=== PATIENT | male | born 1985 | race Caucasian/White ===

== ENCOUNTER → 2016-07-23 | Outpatient (CLI) | payer OTHER ==
[~2016-07-23] MED LIST: CONRAY-43 43% 50ML VIAL (Q9960) As Ordered ONE
--- NOTE | 2016-07-23 09:57 | REP ---
MR ARTHROGRAM LEFT HIP: TECHNIQUE: Coronal T1, STIR through the pelvis, post arthrogram axial T1 fat sat, T2 fat sat, coronal T1 fat sat, T2 fat sat, sagittal T1 fat sat, axial oblique T1 fat sat left hip. The visualized osseous structures demonstrate normal marrow signal. There is no bone marrow edema or occult fracture. There is no evidence of avascular necrosis. There is a tear of the anterior superior labrum. No paralabral cyst is seen. Surrounding soft tissue structures demonstrate abnormal signal. There is no joint effusion. The visualized intrapelvic structures appear unremarkable. IMPRESSION: There is a tear of the anterior superior labrum of the left hip. Signed by Gonzalez Mcbride MD 07/23/2016 03:19 P
--- NOTE | 2016-07-23 15:26 | REP ---
Left hip arthrogram The procedure was performed under the direction supervision of Dr. Mcbride. The benefits and risks including but not limited to pain, infection, bleeding and anaphylaxis were explained to the patient and informed consent was obtained. The left femoral neck was localized using fluoroscopic guidance. Skin was prepped and draped in a sterile fashion. 1% lidocaine was used as a local anesthetic. Using fluoroscopic guidance a 22 gauge spinal needle was inserted and advanced to the femoral neck. 0.5 ml of Conray 43 was injected to verify placement. 11 ml of a solution containing 20 ml of sterile saline and 0.15 ml of ProHance was injected into the joint. The needle was removed and the patient was taken to MRI for postprocedural imaging. The the patient tolerated the procedure well and there were no immediate complications. 1 second of fluoro time was utilized for this procedure. Reviewed by JUANITA Townsend 07/23/2016 09:04 ASigned by Gonzalez Mcbride MD 07/23/2016 03:17 P
== END | disposition home or self-care (01) ==
LOC: M RADPRO 07:45
PROVIDERS: ATTEND Physician Assistant
DX: M24.852 Other specific joint derangements of left hip, not elsewhere classified (principal)
CPT/HCPCS: 27093; 73723; 77002; A9576; Q9960

== ENCOUNTER → 2016-08-27 | Outpatient (CLI) | payer OTHER ==
[~2016-08-27] MED LIST changes: +LIDOCAINE 1% MDV 20ML VIAL As Ordered ONE; +TRIAMCINOLONE ACETONIDE SUSP 40 MG/ML VIAL (J3301) As Ordered ONE
--- NOTE | 2016-08-27 16:45 | REP ---
LEFT HIP INJECTION: The procedure was performed under the direct supervision of Dr. Umana. The benefits and risks including but not limited to pain, infection, bleeding, and anaphylaxis were explained to the patient and informed consent was obtained. The left femoral neck was localized using fluoroscopic guidance. The skin was prepped and draped in a sterile fashion. 1% Lidocaine was used as a local anesthetic. Using fluoroscopic guidance a 22-gauge spinal needle was inserted and then advanced to the femoral neck. 0.5 mL of Conray-43 was injected to verify placement. 10 mL of a solution containing 9 mL of 1% Lidocaine and 1 mL of Kenalog 40 mg was injected. The needle was then removed. The patient tolerated the procedure well and there were no immediate complications. 2 second of fluoroscopic time was utilized for this procedure. Reviewed by JUANITA Townsend 08/28/2016 03:28 PEdited and Signed by Clif Umana MD 08/28/2016 04:25 P
== END ==
LOC: M RADPRO 09:49
PROVIDERS: ATTEND Chiropractor
DX: M24.152 Other articular cartilage disorders, left hip (principal); M25.552 Pain in left hip
CPT/HCPCS: 20610; 77002; J3301; Q9960